=== PATIENT | male | born 1970 | race Caucasian/White ===

== ENCOUNTER 2019-12-09 21:27 | Emergency (ER) | payer OTHER ==
--- NOTE | 2019-12-09 21:29 | ERPHSYRPT ---
- History of Present Illness Time Seen by Provider: 12/09/19 21:29 Source: patient Exam Limitations: no limitations Physician History: This is a 49-year-old white male who presents with 2-day history of right suprapubic/groin abscess. He did not see any insect or spider bite him. In 24 hours it became an abscess and spontaneously drained. This improved the patient's pain. Patient has never had any fever. Patient is not diabetic. Patient has not been able to express any more pus from the site. Because of the redness and some mild drainage from the opening, patient came to the emergency department for antibiotics. Patient was using topical antibiotic ointment for the last 48 hours. Quality: painful Severity: mild Location: other (Right suprapubic/groin) Possible Causes: no cause identified, other (Possible folliculitis) Associated Symptoms: change in skin texture, swelling/mass/lumps Allergies/Adverse Reactions: aspirin Allergy (Severe, Verified 12/09/19 21:37) rash bupropion [From Wellbutrin] Allergy (Severe, Verified 12/09/19 21:37) rash/hives Penicillins Allergy (Severe, Verified 12/09/19 21:37) tongue swelling cephalexin [From Keflex] Adverse Reaction (Intermediate, Verified 12/09/19 21:37) vomiting and fever Home Medications: Buspirone HCl 1 tab PO BID 12/09/19 [History] Losartan Potassium 1 tab PO DAILY 12/09/19 [History] Meloxicam 1 tab PO DAILY 12/09/19 [History] Ropinirole HCl 1 tab PO DAILY 12/09/19 [History] Sertraline HCl 1 tab PO DAILY 12/09/19 [History] Tizanidine HCl 1 tab PO HS 12/09/19 [History] Trazodone HCl 1 tab PO DAILY 12/09/19 [History] Travel Risk - International Travel Have you traveled outside of the country in past 3 weeks: No - Coronavirus Screening Are you exhibiting any of the following symptoms?: No Close contact with a COVID-19 positive Pt in past 14-21 Days: No - Review of Systems Constitutional: No Symptoms Eyes: No Symptoms Ears, Nose, & Throat: No Symptoms Respiratory: No Symptoms Cardiac: No Symptoms Abdominal/Gastrointestinal: No Symptoms Genitourinary Symptoms: No Symptoms Musculoskeletal: No Symptoms Skin: Induration, Other (Redness, tenderness drainage) Neurological: No Symptoms Psychological: No Symptoms Endocrine: No Symptoms Hematologic/Lymphatic: No Symptoms Immunological/Allergic: No Symptoms All Other Systems: Reviewed and Negative - Past Medical History Pertinent Past Medical History: Yes Neurological History: No Pertinent History ENT History: No Pertinent History Cardiac History: No Pertinent History Respiratory History: No Pertinent History Endocrine Medical History: No Pertinent History Musculoskeletal History: No Pertinent History GI Medical History: No Pertinent History History: No Pertinent History Psycho-Social History: Other Male Reproductive Disorders: No Pertinent History - Past Surgical History Past Surgical History: Yes Neuro Surgical History: No Pertinent History Cardiac: No Pertinent History Respiratory: No Pertinent History Gastrointestinal: No Pertinent History Genitourinary: No Pertinent History Musculoskeletal: No Pertinent History Male Surgical History: No Pertinent History - Nursing Vital Signs Nursing Vital Signs: Initial Vital Signs Temperature 97 F 12/09/19 21:27 Pulse Rate 90 12/09/19 21:27 Respiratory Rate 18 12/09/19 21:27 Blood Pressure 167/80 12/09/19 21:27 O2 Sat by Pulse Oximetry 98 12/09/19 21:27 Pain Scale Pain Intensity 5 - Physical Exam General Appearance: no apparent distress, alert, anxiety Eye Exam: PERRL/EOMI, eyes nml inspection Ears, Nose, Throat Exam: normal ENT inspection, moist mucous membranes Neck Exam: normal inspection, non-tender, supple, full range of motion Respiratory Exam: normal breath sounds, lungs clear, airway intact, No chest tenderness, No respiratory distress Cardiovascular Exam: regular rate/rhythm, normal heart sounds, normal peripheral pulses Gastrointestinal/Abdomen Exam: soft, normal bowel sounds, No tenderness, No guarding, No rebound Rectal Exam: not done Back Exam: normal inspection, normal range of motion, No CVA tenderness, No vertebral tenderness Extremity Exam: normal inspection, normal range of motion, pelvis stable Neurologic Exam: alert, oriented x 3, cooperative, 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 There is approximate 1 cm opening with no expressible pus present. There is some serosanguineous fluid that is expressible. There is no odor.) Lymphatic Exam: No adenopathy SpO2 Interpretation: normal O2 Delivery: Room Air - Course Nursing assessment & vital signs reviewed: Yes Ordered Tests: Active Orders 24 hr Category Date Time Status CULTURE,WOUND Stat Lab 12/09/19 22:11 Ordered - Progress Progress: unchanged, pain not gone completely, re-examined Progress Note: 12/09/19 22:16 Medical decision making: This patient states that he had an abscess that was present for 24 hours. It then spontaneously ruptured and there is a large am ount of pus from the site. Since then he has been trying to express pus from that and there is no longer any pus present. There is approximately 1 cm opening. There is no odor the patient is afebrile. There is no expressible pus present. We obtained a culture of the wound. We will place him on antibiotics. Patient does not want any IVs and he does not want any cutting of the tissue or wound site. We will place him on Bactrim DS. We will reevaluate him in 24 hours. He was told he may need to have IV antibiotics if his condition worsens. Counseled pt/family regarding: diagnosis, need for follow-up - Departure Departure Disposition: Home Clinical Impression: Abscess Condition: Stable Critical Care Time: No Additional Instructions: Do not use any ointments lotions or creams to the site. Sitz bath with warm soapy water or warm Epson salts twice a day. Cover the wound with dry dressing after each bath. Take your medication as prescribed. Return to the emergency department 24 hours for reevaluation. Forms: Work/School Release Form Prescriptions: Smz/Tmp Ds Tablet [Bactrim Ds Tablet] 1 udtab PO BID #14 tablet
[2019-12-09 21:53] VITALS: O2SAT 98
[2019-12-09] MEDS ORDERED: BACTRIM DS TABLET PO ONE ×2 (22:10→22:21)
[2019-12-09] MEDS ORDERED: NORCO 5/325 MG PO ONE (22:19)
[2019-12-09] MEDS ORDERED: NORCO 5/325 MG ONE (22:21)
[2019-12-09 22:42] VITALS: BP 158/78; PULSE 88
== END 2019-12-09 22:40 | disposition home or self-care (01) ==
LOC: ED 21:27
DX: L02.214 Cutaneous abscess of groin (principal); T63.301A Toxic effect of unspecified spider venom, accidental (unintentional), initial encounter
CPT/HCPCS: 87070; 87077; 87186; 99283; A9270-GY

== ENCOUNTER 2020-02-25 07:20 | Emergency (ER) | payer OTHER ==
--- NOTE | 2020-02-25 07:39 | ERPHSYRPT ---
- History of Present Illness Time Seen by Provider: 02/25/20 07:38 Source: patient Exam Limitations: no limitations Physician History: This is a 49-year-old white male who presents with 5-day history of left lower lateral calf abscess. He had opened up yesterday and began draining on its own. Patient had a similar abscess on his left lower abdomen/groin area that grew out Staph aureus. Patient has not had a fever. There is tenderness when he is ambulating. Method of Injury: other (No injury. No obvious insect bite per patient) Occurred: days ago (5) Quality: burning Severity of Pain-Max: moderate Severity of Pain-Current: moderate Lower Extremities Pain: leg: left Allergies/Adverse Reactions: aspirin Allergy (Severe, Verified 12/09/19 21:37) rash bupropion [From Wellbutrin] Allergy (Severe, Verified 12/09/19 21:37) rash/hives Penicillins Allergy (Severe, Verified 12/09/19 21:37) tongue swelling cephalexin [From Keflex] Adverse Reaction (Intermediate, Verified 12/09/19 21:37) vomiting and fever Home Medications: Buspirone HCl 1 tab PO BID 12/09/19 [History] Losartan Potassium 1 tab PO DAILY 12/09/19 [History] Ropinirole HCl 1 tab PO DAILY 12/09/19 [History] Sertraline HCl 1 tab PO DAILY 12/09/19 [History] Tizanidine HCl 1 tab PO HS 12/09/19 [History] Trazodone HCl 1 tab PO DAILY 12/09/19 [History] Fluticasone Propionate [Flovent 110 Mcg MDI] 1 spray IN BID 02/25/20 [History] Hx Tetanus, Diphtheria Vaccination/Date Given: Yes Hx Influenza Vaccination/Date Given: Yes Travel Risk - International Travel Have you traveled outside of the country in past 3 weeks: No - Coronavirus Screening Are you exhibiting any of the following symptoms?: No Close contact with a COVID-19 positive Pt in past 14-21 Days: No - Review of Systems Constitutional: No Symptoms Eyes: No Symptoms Ears, Nose, & Throat: No Symptoms Respiratory: No Symptoms Cardiac: No Symptoms Abdominal/Gastrointestinal: No Symptoms Genitourinary Symptoms: No Symptoms Musculoskeletal: No Symptoms Skin: Cellulitis (Localized.), Other (Abscess) Neurological: No Symptoms Psychological: No Symptoms Endocrine: No Symptoms Hematologic/Lymphatic: No Symptoms Immunological/Allergic: No Symptoms All Other Systems: Reviewed and Negative - Past Medical History Pertinent Past Medical History: Yes Neurological History: No Pertinent History ENT History: No Pertinent History Cardiac History: No Pertinent History Respiratory History: No Pertinent History Endocrine Medical History: No Pertinent History Musculoskeletal History: No Pertinent History GI Medical History: No Pertinent History History: No Pertinent History Psycho-Social History: Other Male Reproductive Disorders: No Pertinent History - Past Surgical History Past Surgical History: Yes Neuro Surgical History: No Pertinent History Cardiac: No Pertinent History Respiratory: No Pertinent History Gastrointestinal: No Pertinent History Genitourinary: No Pertinent History Musculoskeletal: No Pertinent History Male Surgical History: No Pertinent History - Social History Smoking Status: Current every day smoker How long have you smoked: 0.5 Exposure to second hand smoke: No Drug Use: none Patient Lives Alone: No - Physical Exam General Appearance: no apparent distress, alert, anxiety Eyes, Ears, Nose, Throat Exam: normal ENT inspection, moist mucous membranes Neck Exam: normal inspection, non-tender, supple, full range of motion Cardiovascular/Respiratory Exam: chest non-tender, no respiratory distress Gastrointestinal/Abdominal Exam: non-tender Back Exam: normal inspection, normal range of motion, No CVA tenderness, No vertebral tenderness Hips Exam: bilateral: non-tender, normal inspection, normal range of motion, no evidence of injury Legs Exam: bilateral leg: normal range of motion, no evidence of injury, pain, soft tissue tenderness, swelling (Draining abscess left lateral calf. Localized cellulitis. Amount of expressible pus present. I compressed all the pus that I could out of the site.) Knees Exam: bilateral knee: non-tender, normal inspection, normal range of motion, no evidence of injury Ankle Exam: bilateral ankle: non-tender, normal inspection, normal range of motion, no evidence of injury Foot Exam: bilateral foot: non-tender, normal inspection, normal range of motion, no evidence of injury Neuro/Tendon Exam: normal sensation, normal motor functions, normal tendon functions Mental Status Exam: alert, oriented x 3, cooperative Skin Exam: other (Localized cellulitis and abscess that is superficial. See above) SpO2 Interpretation: normal O2 Delivery: Room Air - Progress Progress: pain not gone completely Counseled pt/family regarding: diagnosis, need for follow-up - Departure Departure Disposition: Home Clinical Impression: Abscess of left lower leg Condition: Stable Critical Care Time: No Referrals: NAZIA TOWNSEND [Primary Care Provider] - Additional Instructions: Keep site clean daily with soap and water. Do not use lotion ointments or creams. Cover the site with bandage. May use warm compresses to site 2 times a day but not directly on your skin. Call Dr. Townsend's office this morning to make arrangements for follow-up appointment. Take your medication as prescribed. Forms: Work/School Release Form Prescriptions: Hydrocodone/APAP 5-325 Tab^^^ [Magnolia 5-325 Tablet^^^] 1 tab PO Q8H PRN PRN #8 tablet MDD 3 PRN Reason: Pain Smz/Tmp Ds Tablet [Bactrim Ds Tablet] 1 udtab PO BID #14 tablet
[2020-02-25 07:54] VITALS: BP 163/85; PULSE 93; O2SAT 96
== END 2020-02-25 08:08 | disposition home or self-care (01) ==
LOC: ED 07:20
DX: L02.416 Cutaneous abscess of left lower limb (principal); L03.116 Cellulitis of left lower limb
CPT/HCPCS: 87070; 87077; 87186; 99283